=== PATIENT | female | born 1980 | race Caucasian/White ===

== ENCOUNTER 2018-08-29 11:27 | Day surgery (SDC) | payer BC, OTHER ==
[2018-08-29] MEDS: NS 1,000 ML IV (07:00)
[2018-08-29] MEDS ORDERED: PROPOFOL 200 MG/20 ML VIAL As Ordered (13:13)
[2018-08-29] MEDS ORDERED: LIDOCAINE 2% INJ 100 MG/5 ML SDV (FOR ANES.) As Ordered (13:13)
== END 2018-08-29 14:11 | disposition home or self-care (01) ==
LOC: M OPP 14:11
DX: K51.30 Ulcerative (chronic) rectosigmoiditis without complications (principal); D12.5 Benign neoplasm of sigmoid colon; K51.50 Left sided colitis without complications
CPT/HCPCS: 45385

== ENCOUNTER 2021-12-25 07:40 | Day surgery (SDC) | payer BC, OTHER ==
[~2021-12-25] VITALS: Ht 175.3 cm; Wt 79.1 kg
[~2021-12-25 07:40] MED LIST: AZEL1SPR3; FLUTISP; MESA1.2T PO; NS 1,000 ML IV ONE; PROAAER10 INH; SERT25TA21 PO; SYMB16INH INH
[2021-12-25] MEDS ORDERED: LIDOCAINE 2% 100MG/5ML SDV (FOR ANES.) As Ordered ONE (09:10)
[2021-12-25] MEDS ORDERED: propofoL 200 MG/20 ML VIAL As Ordered ONE (09:10)
[2021-12-25 09:45] VITALS: BP 120/84
== END 2021-12-25 10:12 | disposition home or self-care (01) ==
LOC: M OPP 07:40
PROVIDERS: ATTEND Internal Medicine Gastroenterology
DX: K51.30 Ulcerative (chronic) rectosigmoiditis without complications (principal); D12.2 Benign neoplasm of ascending colon; D12.3 Benign neoplasm of transverse colon; D12.4 Benign neoplasm of descending colon; Z79.899 Other long term (current) drug therapy; Z88.0 Allergy status to penicillin; Z88.1 Allergy status to other antibiotic agents; Z88.8 Allergy status to other drugs, medicaments and biological substances; Z87.891 Personal history of nicotine dependence; Z80.1 Family history of malignant neoplasm of trachea, bronchus and lung; Z80.3 Family history of malignant neoplasm of breast; Z80.49 Family history of malignant neoplasm of other genital organs

== ENCOUNTER 2023-12-29 07:00 | Day surgery (SDC) | payer BC ==
[~2023-12-29] VITALS: Ht 172.7 cm; Wt 85.3 kg
[2023-12-29] MEDS: NS 1,000 ML IV ONE (06:00)
[~2023-12-29 07:00] MED LIST changes: +MONT10TA97 PO; -NS 1,000 ML IV ONE
[2023-12-29] MEDS ORDERED: propofoL 200 MG/20 ML VIAL As Ordered ONE (07:21)
[2023-12-29] MEDS ORDERED: LIDOCAINE 2% MDV 20ML VIAL As Ordered ONE (07:21)
[2023-12-29] MEDS ORDERED: GLYCOPYRROLATE INJ 0.2 MG/ML 2 ML VIAL As Ordered ONE (07:21)
[2023-12-29 07:51] VITALS: TEMP 97.1
[2023-12-29 08:10] VITALS: BP 111/72; O2SAT 99
== END 2023-12-29 08:20 | disposition home or self-care (01) ==
LOC: M OPP 07:00
PROVIDERS: ATTEND Internal Medicine Gastroenterology
DX: K52.9 Noninfective gastroenteritis and colitis, unspecified (principal); K51.50 Left sided colitis without complications; K52.89 Other specified noninfective gastroenteritis and colitis; Z79.01 Long term (current) use of anticoagulants; Z79.1 Long term (current) use of non-steroidal anti-inflammatories (NSAID); Z79.51 Long term (current) use of inhaled steroids; Z79.52 Long term (current) use of systemic steroids; Z79.899 Other long term (current) drug therapy; Z88.1 Allergy status to other antibiotic agents